=== PATIENT | male | born 1985 | race Two or more races ===

== ENCOUNTER 2020-03-29 19:59 | Emergency (ER) | payer SELFPAY ==
[~2020-03-29] VITALS: Ht 190.5 cm; Wt 111.4 kg
[2020-03-29 20:05] VITALS: BP 145/95
[2020-03-29] MEDS ORDERED: HydrOXYzine PAMOATE 50 MG CAPSULE PO ONE (20:45)
== END 2020-03-29 21:08 | disposition home or self-care (01) ==
LOC: EMS 19:59
DX: Z03.818 Encounter for observation for suspected exposure to other biological agents ruled out (principal); F41.9 Anxiety disorder, unspecified; R20.0 Anesthesia of skin
CPT/HCPCS: 87635

== ENCOUNTER 2020-04-11 06:46 | Emergency (ER) | payer SELFPAY ==
[~2020-04-11] VITALS: Ht 190.5 cm; Wt 109.1 kg
[2020-04-11 06:47] VITALS: BP 123/93
== END 2020-04-11 07:49 | disposition home or self-care (01) ==
LOC: EMS 06:46
DX: U07.1 COVID-19 (principal); F41.9 Anxiety disorder, unspecified; J02.9 Acute pharyngitis, unspecified; R09.81 Nasal congestion; R42 Dizziness and giddiness